=== PATIENT | male | born 1950 | race Caucasian/White ===

== ENCOUNTER → 2023-11-11 | Outpatient (CLI) | payer MEDICARE, OTHER ==
[~2023-11-11] MED LIST: Gadoterate 20 ML VIAL IV ONE
== END ==
LOC: COL.RAD 06:58
DX: G93.0 Cerebral cysts (principal); J32.8 Other chronic sinusitis; I67.82 Cerebral ischemia
CPT/HCPCS: A9575

== ENCOUNTER → 2023-11-17 | Outpatient (CLI) | payer MEDICARE, OTHER | LOC: COL.RAD 08:57 | DX: K21.9 Gastro-esophageal reflux disease without esophagitis (principal) ==